=== PATIENT | male | born 1980 | race Caucasian/White ===

== ENCOUNTER 2020-01-30 22:10 | Emergency (ER) | payer OTHER ==
[2020-01-30 22:19] VITALS: BP 135/93; PULSE 97; TEMP 99; BMI 29.0
[2020-01-30] MEDS ORDERED: CEPHALEXIN MONOHYDRATE 500 MG CAPSULE (UD) PO ONE (22:23)
--- NOTE | 2020-01-30 22:23 | PDOC ---
History of Present Illness - General Chief Complaint: Redness To Affected Area Stated Complaint: ABSCESS Time Seen by Provider: 01/30/20 22:12 - History of Present Illness Initial Comments: 01/30/20 22:17 39 M with redness and swelling to L groin. Pt states that he had a pimple or ingrown hair near his pubic region. Over the past 2-3 days, it became more red and swollen. Pt notes that it started draining pus after he picked at it. Denies any fevers/chills. Past History - Medical History Allergies/Adverse Reactions: Allergies Allergy/AdvReac Type Severity Reaction Status Date / Time No Known Allergies Allergy Unverified 02/10/14 15:55 Home Medications: Ambulatory Orders NK [No Known Home Medication] 01/30/20 COPD: No - Immunization History Immunization Up to Date: Yes - Psycho-Social/Smoking History Smoking History: Never smoked Review of Systems - Review of Systems Comments:: 01/30/20 22:19 "GENERAL/CONSTITUTIONAL: No fever or chills. No weakness. HEAD, EYES, EARS, NOSE AND THROAT: No change in vision. No ear pain or discharge. No sore throat. CARDIOVASCULAR: No chest pain, no shortness of breath, no loss of consciousness RESPIRATORY: No cough, wheezing, or hemoptysis. GASTROINTESTINAL: No nausea, vomiting, diarrhea or constipation. GENITOURINARY: No dysuria, frequency, or change in urination. MUSCULOSKELETAL: No joint or muscle swelling or pain. No neck or back pain. SKIN: + redness/swelling to L groin NEUROLOGIC: No vertigo, no change in strength/sensation. ENDOCRINE: No increased thirst. No abnormal weight change. HEMATOLOGIC/LYMPHATIC: No anemia, easy bleeding, or history of blood clots. ALLERGIC/IMMUNOLOGIC: No hives or skin allergy. *Physical Exam - Vital Signs Last Vital Signs Temp Pulse Resp BP Pulse Ox 99 F 97 H 18 135/93 100 01/30/20 22:13 01/30/20 22:13 01/30/20 22:13 01/30/20 22:13 01/30/20 22:13 - Physical Exam 01/30/20 22:20 "GENERAL: Awake, alert, and fully oriented, in no acute distress. HEAD: No signs of trauma EYES: PERRLA, EOMI, sclera anicteric, conjunctiva clear ENT: Auricles normal inspection, hearing grossly normal, nares patent, oropharynx clear without exudates. Moist mucosa NECK: Nontender, no stepoffs, Normal ROM, supple, no lymphadenopathy, JVD, or masses LUNGS: Breath sounds equal, clear to auscultation bilaterally. No wheezes, and no crackles HEART: Regular rate and rhythm, normal S1 and S2, no murmurs, rubs or gallops ABDOMEN: Soft, nontender, normoactive bowel sounds. No guarding, no rebound. No masses EXTREMITIES: Normal range of motion, no edema. No clubbing or cyanosis. No cords, erythema, or tenderness NEUROLOGICAL: Cranial nerves II through XII intact. 5/5 strength and sensation in all extremities, Normal speech, normal gait, normal cerebellar function SKIN: + L groin with erythema, induration, no fluctuance, no active drainage Medical Decision Making - Medical Decision Making 01/30/20 22:20 39 M with cellulitis likely 2/2 ingrown hair in L groin. No palpable abscess at this time, though pt notes that he popped it himself earlier. - Start PO keflex Pt is well appearing, with normal vitals. Clinically stable for DC at this time. I discussed the physical exam findings, ancillary test results and final diagnoses with the patient. I answered all of the patient's questions. The patient was satisfied with the care received and felt comfortable with the discharge plan and treatment plan. The patient agrees to follow up with the primary care physician within 24-72 hours. Please note this patient was evaluated during the COVID-19 crisis with the presidential Snow Act Declaration and the [place] governor executive order number 202. He/she was evaluated and clinical decisions were made relative to healthcare system resources as well as clinical picture during a pandemic crisis situation. Discharge - Discharge Information Problems reviewed: Yes Clinical Impression/Diagnosis: Cellulitis, Ingrown hair Condition: Stable Disposition: HOME - Follow up/Referral - Patient Discharge Instructions Patient Printed Discharge Instructions: Cellulitis Additional Instructions: You have a skin infection. Take the antibiotics as prescribed to treat it. If you experience worsening swelling, pain, drainage, fevers, or any other concerning symptoms, return to the ER immediately. Otherwise, follow up with your primary doctor within 1 week for a re-evaluation. - Post Discharge Activity
[2020-01-30] MEDS ORDERED: CEPHALEXIN MONOHYDRATE 500 MG CAPSULE (UD) ONE (22:26)
== END 2020-01-30 22:29 | disposition home or self-care (01) ==
LOC: FER 22:10
DX: L73.1 Pseudofolliculitis barbae (principal); L03.314 Cellulitis of groin
CPT/HCPCS: 99283-25

== ENCOUNTER 2020-11-23 21:11 | Emergency (ER) | payer OTHER ==
[2020-11-23 21:18] VITALS: BP 126/74; PULSE 76; TEMP 98; BMI 26.6
[2020-11-23] MEDS ORDERED: IBUPROFEN 600 MG TABLET (FP) PO ONE ×2 (21:26→21:28)
== END 2020-11-23 21:36 | disposition home or self-care (01) ==
LOC: FER 21:11
DX: I83.93 Asymptomatic varicose veins of bilateral lower extremities (principal)
CPT/HCPCS: 99284-25